=== PATIENT | male | born 1955 | race Caucasian/White ===

== ENCOUNTER 2018-01-05 09:26 | Emergency (ER) | payer MEDICAID ==
[~2018-01-05] VITALS: Ht 170.2 cm; Wt 75.0 kg
[2018-01-05 09:39] VITALS: Ht 170.2 cm; Wt 75.0 kg
[2018-01-05] MEDS ORDERED: ZOCOR40 MG PO ×2 (10:05→13:18)
[2018-01-05] MEDS ORDERED: ISOSORBIDE MONO30 M1 PO ×2 (10:05→13:18)
[2018-01-05] MEDS ORDERED: HYDROCHLOROTHIA25 MG PO ×2 (10:05→13:18)
[2018-01-05] MEDS ORDERED: VITAMIN E1000 UNI1 PO (10:06)
[2018-01-05] MEDS ORDERED: ASPIRIN325 MG PO ×2 (10:06→13:18)
[2018-01-05] MEDS ORDERED: HYTRIN5 MG PO ×2 (10:06→13:18)
[2018-01-05] MEDS ORDERED: VITAMIN B-121000 MCG PO (10:06)
[2018-01-05] MEDS ORDERED: CENTRUM COMPLE1 EACH PO (10:07)
[2018-01-05 10:51] LABS: APPEARANCE CLEAR (CLEAR); BILIRUBIN NEGATIVE (NEGATIVE); COLOR DK YELLOW (YELLOW); GLUCOSE NEGATIVE (NEGATIVE); KETONE NEGATIVE (NEGATIVE); NITRITE NEGATIVE (NEGATIVE); PROTEIN NEGATIVE (NEGATIVE); SPECIFIC GRAVITY 1.015 (1.005-1.020); UROBILINOGEN NORMAL (NORMAL)
[2018-01-05] MEDS ORDERED: CYCLOBENZAPRINE10 MG PO (12:04)
[2018-01-05] MEDS ORDERED: IBUPROFEN800 MG PO (12:04)
[2018-01-05] MEDS ORDERED: ACETAMINOPHEN500 M1 PO (12:04)
[2018-01-05 13:00] VITALS: BP 120/71
[2018-02-18 02:16] VITALS: Ht 170.2 cm; Wt 75.0 kg
== END 2018-01-05 13:00 | disposition home or self-care (01) ==
LOC: D.ER 09:26
PROVIDERS: Family Medicine
DX: M54.42 Lumbago with sciatica, left side (principal); R20.2 Paresthesia of skin

== ENCOUNTER 2018-02-17 15:52 | Observation (INO) | payer MEDICAID ==
[~2018-02-17] VITALS: Ht 170.2 cm; Wt 75.6 kg
--- NOTE | ~2018-02-17 | DS ---
PATIENT:EFRAIN COVARRUBIAS :55 MEDICAL RECORD: [id number] DISCHARGE SUMMARY ADMISSION DATE: 02/17/18 DISCHARGE DATE: 02/18/18 DISCHARGE DIAGNOSES: 1. Chest pain compatible with angina. 2. Coronary artery disease. 3. Status post coronary bypass graft surgery. HOSPITAL COURSE: This is a gentleman who presents with anginal symptomatology; however, cardiac catheterization reveals wide patency of all his grafts, mild diffuse disease distally, but no need for cardiac intervention. He was discharged home with the addition of Imdur to his medical regimen. He will follow up with [facility] in 1 month. TRANSINT:[id number] Voice Confirmation ID: [id number] DOCUMENT ID: [id number] SHANNAN JAVIER MD at 1325 CC: [id number] DICTATION DATE: 02/18/18 1201 INSIDE CHANNEL ACCOUNT MANAGER: 02/18/18 1708 DIS IN 02/18/18 [place] [id number] [place] [address]
--- NOTE | ~2018-02-17 | HP ---
PATIENT: EFRAIN COVARRUBIAS MEDICAL RECORD: [id number] ACCOUNT: [id number] LOCATION:[address] : 55 ADMISSION DATE: 02/17/18 HISTORY AND PHYSICAL EXAMINATION DIAGNOSES: 1. Angina. 2. Coronary disease. 3. Status post coronary bypass graft surgery, 4 vessels, 13 years ago in [place]. 4. Unsteady gait. 5. Carotid vascular disease. 6. Hyperlipidemia. 7. Hypertension. HISTORY: This is a gentleman with past history of coronary disease, who relocated to [facility] from [place]. He is status post coronary bypass graft surgery in [place] 13 years ago. He began having some chest pain and chest discomfort for the past 2 months. It has progressed. He as well has had near syncope and unsteady gait that has worsened. He has been told in the past that he has carotid vascular disease. REVIEW OF SYSTEMS: The patient reports easy bruising but reports no swollen glands. The patient reports no fever, no night sweats, no significant weight gain, no significant weight loss. No significant exercise tolerance. The patient reports no dry eyes, no irritation, no vision change. Patient reports no difficulty hearing and no ear pain. Patient reports no frequent nose bleeds or nose and sinus problems. Patient reports on arm pain on exertion. No shortness of breath while lying down. No history of heart murmur. Patient reports no cough, no wheezing or coughing up blood. Patient reports no abdominal pain, no vomiting. Normal appetite. No diarrhea and not vomiting blood. No nausea and no constipation. Patient reports no incontinence. No difficulty urinating. No hematuria. No increased frequency. Patient reports no muscle aches. No weakness, no arthralgias, no back pain. No swelling of the extremities. Patient reports no abnormal mole, no jaundice, no rashes. Reports no loss of consciousness. No weakness and no numbness. No seizures, dizziness, or headaches. The patient reports no depression, no sleep disturbance, feeling safe in a relationship and no alcohol abuse. Patient reports on fatigue. Reports no runny nose or sinus pressure. No itching, no hives, and no frequent sneezing. PHYSICAL EXAMINATION: GENERAL APPEARANCE: Well-nourished, well-developed, appears stated age. Level of distress, comfortable. PSYCHIATRIC: Mental status, alert, normal affect. Orientation, oriented to time, place and person. EYES: Lids and conjunctiva, noninjected. No discharge, no pallor. ENT: Lips, teeth, gums, normal dentition. Oropharynx, no cyanosis, no pallor. NECK: Carotid arteries, bilateral normal upstroke, no bruits, no thrills. JUGULAR VEINS: No jugular venous pressure or distention. CERVICAL LYMPH NODES: Nontender, nonenlarged. THYROID: Not enlarged. Nontender. No nodules. LUNGS: Respiratory effort, unlabored. CHEST: Normal curvature. No thoracic deformity. No chest wall tenderness. Percussion, resonant. Auscultation, clear. No wheezes, no rales, no rhonchi. HISTORY AND PHYSICAL [id number] EFRAIN COVARRUBIAS CARDIOVASCULAR: Precordial exam, nondisplaced. No heaves or pericardial thrills. Rate and rhythm, regular. Heart sounds, normal S1, normal S2. No S3, no gallop, no rub. Systolic murmur, not heard. Diastolic murmur, not heard. EXTREMITIES: No cyanosis, no edema. Peripheral pulses, full and equal in all extremities, except as noted. No bruits appreciated. ABDOMEN: Soft, nondistended. Normal aorta. No bruit. Nontender. No masses. Liver, nontender, no hepatomegaly. Spleen, nontender, no splenomegaly. MUSCULOSKELETAL: No joint tenderness. No joint swelling. No erythema. NEUROLOGICAL: Normal gait, normal strength, normal tone. SKIN: Warm and dry. OVERALL IMPRESSION: Unstable anginal symptomatology with 13-year-old bypass grafts as well as neurologic symptoms with carotid vascular disease. We will proceed with coronary angiography and 4 vessel carotid vertebral angiography. Further care depends upon the findings of the angiography. TRANSINT:[id number] Voice Confirmation ID: [id number] DOCUMENT ID: [id number] SHANNAN JAVIER MD at 1325 CC: [id number] DICTATION DATE: 02/18/18 1118 SANDBLASTER SUPERVISOR: 02/18/18 1239 DIS IN 02/18/18 [facility] [address] [place] [address]
--- NOTE | ~2018-02-17 | OP ---
PATIENT NAME: EFRAIN COVARRUBIAS MEDICAL RECORD: [id number] :55 LOCATION:D.M2 [address].2118 ADMISSION DATE:02/17/18 SURGEON: SHANNAN JAVIER MD DATE OF OPERATION: 02/18/2018 PROCEDURES: 1. Left heart catheterization. 2. Selective coronary angiography. 3. Vein graft angiography. 4. CIFUENTES angiography. 5. Left ventriculogram. 6. Four-vessel carotid and vertebral angiography. INDICATION: Angina, coronary artery disease, unsteady gait, carotid vascular disease. DESCRIPTION OF PROCEDURE: After informed consent was obtained and after detailed explanation of risks, benefits as well as alternative therapies, the patient elected to proceed with angiogram and heart catheterization. The right femoral area was prepped and draped in normal sterile fashion. Right femoral artery was cannulated via modified Seldinger technique with placement of 5-Kyrgyz sheath. All catheters exchanged through this sheath. FINDINGS: There was subselection of each subclavian as well as the left carotid. Right Side: The common internal and external carotids have mild plaquing, none greater than 20%, no flow-limiting stenosis. Vertebral artery is with no significant disease. Left System: The common internal and external carotids have mild plaquing, no greater than 20%, no flow-limiting stenosis. Vertebral artery has no significant disease. Left ventriculogram was performed in standard 30-degree GRANADO view, reveals good cardiac wall motion throughout all segments. Overall ejection fraction estimated 60%. SELECTIVE CORONARY ANGIOGRAPHY: 1. Left main has 90% stenosis. 2. The left anterior descending is totally occluded. 3. Left circumflex is totally occluded. 4. Right coronary is totally occluded. 5. CIFUENTES to the LAD is widely patent. Distal LAD is mildly diffusely diseased, but patent. 6. Vein graft to the circumflex in a skipped fashion to OM1 and OM2 is patent. The distal circumflex has no significant disease. 7. Right coronary vein graft is patent. Distal right coronary is mildly diffusely diseased. OVERALL IMPRESSION: Wide patency of all his grafts with no significant disease elsewise. mild diffuse disease distally. Continue medical management of the coronary artery disease and cardiac risk factors. TRANSINT:[id number] Voice Confirmation ID: [id number] DOCUMENT ID: [id number] OPERATIVE REPORT [id number] SATISHEFRAIN JEFFREY MD at 1325 CC: [id number] DICTATION DATE: 02/18/18 1203 FIBER DRIER OPERATOR: 02/18/18 1328 DIS IN 02/18/18 [place] [id number] [place] [id number]
--- NOTE | ~2018-02-17 | HEMODYNAMI ---
PATIENT:EFRAIN COVARRUBIAS MEDICAL RECORD: [id number] : 55 [facility] [address] [id number] ADMISSION DATE: 02/17/18 Generatedon:02/18/201812:03 Patient name: EFRAIN COVARRUBIAS Patient #: [id number] SS N: : 1955 Date of study: 02/18/2018 Page: Of Hemodynamic Procedure Report Patient Data Patient Demographics Procedure consent was obtained First Name: EFRAIN Gender: Male Last Name: SATISH : 1955 Patient #: [id number] Age: 63 year(s) Race: Unknown Additional ID: [id number] Contact details [address]: [address] [place] [address] State: [place] City: [place] Zip code: [address] Past Medical History Allergies Allergen Reaction Date Comments Reported Other allergy 02/18/2018 [facility] Admission Admission Data Admission Date: 02/17/2018 Admission Time: 19:37 Admit Source: Other Room #: D.2118 Height (in.): 66.93 BSA: 1.86 (m2) Height (cm.): 170 BMI: 25.95 (kg/m2) Weight (lbs.): 165.35 Weight (kg.): 75 Lab Results Lab Result Date: 02/18/2018 Lab Result Time: 0:00 Biochemistry Name Units Result Min Max BUN mg/dl 9 --(*---)-- 7 18 Creatinine mg/dl 1 --(--*-)-- 0.6 1.3 CBC Name Units Result Min Max Hemoglobin g/dl 14.8 --(-*--)-- 13.5 17.5 Procedure Procedure Types Cath Procedure Diagnostic Procedure LHC LHC w/Coronaries w/Grafts Sedation Charges Procedure Description Procedure Date Procedure Date: 02/18/2018 Procedure Start Time: 11:49 Procedure End Time: 12:01 Procedure Staff Name Function Zenon Garces MD Performing Physician Katie Godinez RT Monitor Marvin Servin RT Scrub Edinson Lorigan RN Nurse Procedure Data Cath Procedure Fluoroscopy Diagnostic fluoroscopy Total fluoroscopy Time: 2.4 time: 2.4 min min Diagnostic fluoroscopy Total fluoroscopy dose: 454 dose: 454 mGy mGy Contrast Material Contrast Material Type Amount (ml) Isovue 300 85 Entry Location Entry Primary Successful Side Size Upsize Upsize Entry Closure Succes sful Closure Location (Fr) 1 (Fr) 2 (Fr) Remarks Device Remarks Femoral Right 5 Fr Exoseal artery Estimated blood loss: 10 ml Diagnostic catheters Device Type Used For End Catheter Placement MULTIPACK Pigtail 5 Fr Procedure catheter MULTIPACK JL 4.0 5Fr Procedure catheter MULTIPACK 3DRC 5Fr Procedure catheter DIAGNOSTIC AR MOD 5Fr Procedure Catheter ([id number]) Procedure Complications No complications Procedure Medications Medication Administration Route Dosage 0.9% NaCl I.V. 100 ml/hr Oxygen etCO2 Nasal cannula 2 l/min Heparin Flush Bag added to field 2 bags (1000units/500ml NS) Lidocaine 2% added to field 20 Versed I.V. 2 mg Fentanyl I.V. 100 mcg Hemodynamics Rest BSA: 1.86 (m2) HGB: 14.8 (g/dl) O2 Consumption: Estimated: 219.53 (ml/min) O2 Co nsumption indexed: Estimated:118.03 (ml/min/m) Heart Rate: 73 (bpm) Snapshots Pre Cath Intra NCS Post Cath Vital Signs Time Heart Resp SPO2 etCO2 NIBP (mmHg) Rhythm Pain Sedation Rate (ipm) (%) (mmHg) Status Level (bpm) 11:36:36 72 17 99 0 146/78(126) NSR 0 (11) 10(A) , No pain 11:41:18 68 18 96 0 138/81(115) NSR 0 (11) 10(A) , No pain 11:45:59 66 15 96 29.9 129/81(100) NSR 0 (11) 10(A) , No pain 11:50:42 64 14 98 11.9 127/75(99) NSR 0 (11) 10(A) , No pain 11:55:22 67 13 98 41.1 126/74(111) NSR 0 (11) 10(A) , No pain 12:00:01 61 15 100 36.7 130/73(102) NSR 0 (11) 10(A) , No pain Medications Time Medication Route Dose Verified Delivered Reason Notes Eff ectiveness by by 11:43:30 0.9% NaCl I.V. 100 Edinson Edinson Per ml/hr Spencer Palmer physician RN RN 11:43:40 Oxygen etCO2 2 Edinson Edinson Per Nasal l/min Spencer Palmer physician cannula RN RN 11:43:54 Heparin Flush added 2 Edinson Edinson used for Bag to bags Spencre Palmer procedure (1000units/500ml field RN RN NS) 11:44:04 Lidocaine 2% added 20ml Edinson Edinson for local to vial Lorigan Giaigan anesthetic field RN RN 11:50:50 Versed I.V. 2 mg Edinson Edinson for Lorigan Lorigan sedation RN RN 11:50:57 Fentanyl I.V. 100 Edinson Edinson for mcg Lorigan Lorigan sedation RN traffic investigator Log Time Note 11:10:18 Informed consent obtained and on chart 11:10:21 Admit Source: Other 11:10:34 Diagnostic Cath status Elective 11:10:36 Marvin Servin RT(R) sent for patient. Start room use. 11:10:36 Time tracking: Call back (After hours or weekends) 11:10:40 Plan of Care:Hemodynamics will remain stable., Cardiac rhythm will remain stable., Comfort level will be maintained., Respiratory function will remain adequate., Patient/ family verbilizes understanding of procedure., Procedure tolerated without complication., Recovers from procedure without complications.. 11:22:57 Patient Height : 66.93 inches 11:23:02 Patient Weight : 165.35 lbs 11:23:50 Lab Result : Hemoglobin 14.8 g/dl 11:23:50 Lab Result : Creatinine 1 mg/dl 11:23:50 Lab Result : BUN 9 mg/dl 11:31:43 Patient received from Med II to CCL 1 Alert and oriented. Tansferred to table in Supine position. 11:31:44 Warm blankets applied, and janny hugger turned on for patient comfort. 11:31:45 Correct patient and procedure confirmed by team. 11:31:45 ECG and BP/O2 sat monitors applied to patient. 11:35:41 Baseline sample Acquired. 11:35:41 Vital chart was started 11:41:08 Full Disclosure recording started 11:41:14 H&P Date Dictated: 02/17/2018 Within 30 days and on chart.. 11:41:16 Pre-procedure instructions explained to patient. 11:41:44 Family unavailable. 11:41:46 Patient NPO since Midnight. 11:42:18 Patient allergic to Other allergyPCN 11:42:27 Is patient on blood thinner?Yes 11:42:30 ACC The patient was administered the following blood thiners within the last 24 hours: ACCPlavix 11:42:33 Patient diabetic? No. 11:42:37 Snore? Yes 11:42:39 Sleep apnea? No 11:42:51 Dentures? Yes IN Tight 11:42:55 Patient pain scale 0/10 ?. 11:43:07 IV patent on arrival in left forearm with 0.9% NaCl at [facility]. 11:43:12 Lab results completed and on chart. 11:43:16 Right groin area was prepped with chlora-prep and draped in sterile fashion 11:43:18 Alarms reviewed by R. N. 11:43:18 Sharps counted by scrub and verified by R.N. 11:43:20 Physician paged 11:43:30 0.9% NaCl 100 ml/hr I.V. was administered by Edinson Palmer RN; Per physician; 11:43:40 Oxygen 2 l/min etCO2 Nasal cannula was administered by Edinson Palmer RN; Per physician; 11:43:54 Heparin Flush Bag (1000units/500ml NS) 2 bags added to field was administered by Edinson Palmer RN; used for procedure; 11:44:04 Lidocaine 2% 20ml vial added to field was administered by Edinson Palmer RN; for local anesthetic; 11:48:48 Physician arrived 11:48:48 --------ALL STOP TIME OUT------ 11:48:49 Final Timeout: patient, procedure, and site verified with staff and physician. All members of the team are in agreement. 11:48:51 Right groin site verified by team. 11:48:56 Physical assessment completed. ASA score P 2 - A patient with mild systemic disease as per Zenon Garces MD. 11:49:00 Sedation plan: IV Moderate Sedation Medication:Versed, Fentanyl 11:49:06 Procedure started. 11:49:10 Use device set Femoral Dx 11:49:15 Local anesthetic to right femoral artery with Lidocaine 2% by Zenon Garces MD.INITIAL ACCESS ONLY 11:49:17 ACIST Syringe (49820) opened to sterile field. 11:49:18 Bag Decanter () opened to sterile field. 11:49:18 Medline Cath Pack ([id number]) opened to sterile field. 11:49:19 DIAGNOSTIC WIRE .035 260cm J wire (299182) opened to sterile field. 11:49:22 ACIST Hand Control (93836) opened to sterile field. 11:49:22 ACIST Manifold (96137) opened to sterile field. 11:49:23 DIAGNOSTIC Multipack 5Fr catheter set (FY5971) opened to sterile field. 11:49:23 Tegaderm 4 x 4 (1626W) opened to sterile field. 11:49:23 PERCUTANEOUS ENTRY 19GA needle opened to sterile field. 11:49:30 SHEATH Prelude 5Fr 0.035 (GNB-1L-28-035) opened to sterile field. 11:49:57 A 5 Fr sheath was inserted into the Right Femoral artery 11:50:07 A MULTIPACK Pigtail 5 Fr catheter was advanced over the wire and used for Procedure. 11:50:11 Catheter removed. 11:50:33 A MULTIPACK JL 4.0 5Fr catheter was advanced over the wire and used for Procedure. 11:50:40 LCA angiography performed. 11:50:50 Versed 2 mg I.V. was administered by Edinson Palmer RN; for sedation; 11:50:57 Fentanyl 100 mcg I.V. was administered by Edinson Palmer RN; for sedation; 11:51:12 Catheter removed. 11:51:19 A MULTIPACK 3DRC 5Fr catheter was advanced over the wire and used for Procedure. 11:51:51 Right carotid angiography performed. 11:51:53 Left carotid angiography performed. 11:52:59 RCA angiography performed. 11:53:03 CIFUENTES to LAD angiography performed. 11:53:51 Catheter removed. 11:54:02 A DIAGNOSTIC AR MOD 5Fr Catheter (147506N) was advanced over the wire and used for Procedure. 11:55:05 SVG to Circ angiography performed. 11:55:33 SVG to RCA angiography performed. 11:56:05 EXOSEAL 5Fr (EX500) opened to sterile field. 11:56:19 Catheter removed. 11:56:34 Sheath removed intact; hemostasis achieved with Exoseal to the Right Femoral artery. 11:56:36 Procedure ended.(Physican Out) 11:56:59 Fluoroscopy time 02.40 minutes. 11:57:04 Fluoroscopy dose: 454 mGy 11:57:04 Flurop Dose total: 454 11:57:18 Contrast amount:Isovue 300 85ml. 11:57:28 Insertion/operative site no bleeding no hematoma. 11:57:33 Post-op/insertion site Right Femoral artery dressed using a 4 x 4 and Tegaderm. 11:57:40 Post right femoral artery:stable 11:57:46 Post Procedure Pulses reassessed and unchanged 11:58:34 Post-procedure physical assessment completed. ASA score P 2 - A patient with mild systemic disease as per Zenon Garces MD. 11:58:37 Post procedure rhythm: unchanged. 11:58:41 Estimated blood loss: 10 ml 11:58:43 Post procedure instruction explained to patient.Patient verbalizes understanding. 11:59:18 Procedure type changed to Cath procedure, Diagnostic procedure, LHC, LHC w/Coronaries w/Grafts, Sedation Charges 11:59:19 Procedure and supply charges have been captured, reviewed, submitted and are correct. 12:00:29 Procedure Complication : No complications 12:00:32 Vital chart was stopped 12:00:47 See physician's report for complete and final results. 12:00:49 Report given to Pre/Post Procedure Room. 12:01:10 Patient transfered to [facility] with Stretcher. 12:01:13 Procedure ended. 12:01:13 Full Disclosure recording stopped 12:01:34 End room use (Document Last) Device Usage Item Name Manufacture Quantity Catalog Number Hospital Part Current M inimal Lot# / Charge Number Stock Stock Serial# Code ACIST Syringe Acist 1 18989 988250 518745 258795 2 0 (84830) [employer] Bag Decanter Microtek 1 074261 32937 359869 5 () Medical Inc. Medline Cath Cardinal 1 [id number] 142321 93303 399957 5 Active[employer] Health ([id number]) DIAGNOSTIC WIRE [address] [place] 1 912995 887179 538269 931922 3 0 .035 260cm J wire (666711) ACIST Hand Acist 1 35138 596585 379741 663571 5 Control (11187) [employer] ACIST Manifold Acist 1 92512 354029 629300 940656 5 (65024) [employer] DIAGNOSTIC Cardinal 1 NV1166 038215 75677 161504 3 0 Multipack 5Fr Health catheter set (SI3798) Tegaderm 4 x 4 3M 1 1626W 631540 857926 675490 5 (1626W) PERCUTANEOUS Cook Medical 1 [id number] 672027 030774 5 ENTRY 19GA needle SHEATH Prelude Merit 1 ING-7I-05-035 115029 435456 703593 5 5Fr 0.035 Medical ([id number]-8F-10-035) MULTIPACK Cardinal 1 895285 5 Pigtail 5 Fr Health catheter MULTIPACK JL Cardinal 1 174065 5 4.0 5Fr Health catheter MULTIPACK 3DRC Cardinal 1 [id number] 5 5Fr catheter Health DIAGNOSTIC AR Cardinal 1 [id number] 271562 685740 645183 1 5 MOD 5Fr Health Catheter (274477L) EXOSEAL 5Fr Cardinal 1 EX500 731209 938049 844632 1 0 (EX500) Health Signature Audit [place] Stage Time Signature Unsigned Intra-Procedure 02/18/2018 Marvin Servin 12:03:33 PM RT(R) Signatures Monitor : Katie Godinez Signature : RT Date : Time : [facility] [address] [place] [address]
[~2018-02-17 15:52] MED LIST: ACETAMINOPHEN500 M1 PO; ASPIRIN325 MG PO; CENTRUM COMPLE1 EACH PO; CYCLOBENZAPRINE10 MG PO; HYDROCHLOROTHIA25 MG PO; HYTRIN5 MG PO; IBUPROFEN800 MG PO; ISOSORBIDE MONO30 M1 PO; VITAMIN B-121000 MCG PO; VITAMIN E1000 UNI1 PO; ZOCOR40 MG PO
[2018-02-17 16:29] LABS: BASOPHILS 0.3 % (0-2); EOSINOPHILS 1.3 % (0-7); HEMATOCRIT 40.5 % (42.0-54.0); HEMOGLOBIN 14.8 g/dL (13.5-17.5); IMMATURE GRANULOCYTES 0.3 % (0-5); LYMPHOCYTES 43.5 % (15-50); MCH 32.6 pg (26.0-34.0); MCHC 36.5 g/dL (31.0-37.0); MCV 89.2 fL (80.0-100.0); MEAN PLATELET VOLUME 9.5 fL (7.4-10.4); MONOCYTES 7.4 % (2-11); NEUTROPHILS 47.2 % (40-80); PLATELET COUNT 185 10x3/uL (130-400); RBC 4.54 10x6/uL (4.20-6.10); RDW 12.4 % (11.5-14.5)
[2018-02-17 17:08] LABS: ALBUMIN 3.6 g/dL (3.4-5.0); ALKALINE PHOSPHATASE 51 U/L (46-116); ALT (SGPT) 52 U/L (10-68); BILIRUBIN - TOTAL 0.48 mg/dL (0.2-1.3); CALC OSMOLALITY 279 mosm/kg (275-300); CALCIUM 8.5 mg/dL (8.5-10.1); CHLORIDE - SERUM 102 mmol/L (98-107); GLUCOSE 97 mg/dL (74-106); POTASSIUM - SERUM 3.1 mmol/L (3.5-5.1); PROTEIN - SERUM 6.8 g/dL (6.4-8.2); SODIUM 141 mmol/L (136-145); UREA NITROGEN 9 mg/dL (7-18); eGFR NON AFRICAN AMERICAN 80 mL/min (90-120)
[2018-02-17 17:15] VITALS: BP 119/74
[2018-02-17 17:22] LABS: CKMB 0.7 U/L (0.0-3.6); CREATINE KINASE 115 UL (21-232)
[2018-02-17 17:23] LABS: TROPONIN-I < 0.017 ng/mL (0.000-0.060)
[2018-02-17 21:26] VITALS: BP 159/88
[2018-02-17 22:46] LABS: CKMB 0.9 U/L (0.0-3.6); CREATINE KINASE 107 UL (21-232)
[2018-02-17 22:47] LABS: TROPONIN-I < 0.017 ng/mL (0.000-0.060)
[2018-02-18 00:45] VITALS: BP 128/71
[2018-02-18 02:16] VITALS: BP 159/88; Ht 170.2 cm; Wt 75.6 kg
[2018-02-18 02:52] LABS: CKMB 0.9 U/L (0.0-3.6); CREATINE KINASE 102 UL (21-232)
[2018-02-18 02:55] LABS: TROPONIN-I < 0.017 ng/mL (0.000-0.060)
[2018-02-18 06:29] VITALS: BP 109/70
[2018-02-18 08:19] LABS: CKMB 0.5 U/L (0.0-3.6); CREATINE KINASE 98 UL (21-232)
[2018-02-18 08:24] LABS: TROPONIN-I < 0.017 ng/mL (0.000-0.060)
[2018-02-18 08:57] VITALS: BP 133/77
[2018-02-18 10:26] LABS: CALC OSMOLALITY 280 mosm/kg (275-300); CALCIUM 8.4 mg/dL (8.5-10.1); CARBON DIOXIDE 30.4 mmol/L (21.0-32.0); CHLORIDE - SERUM 103 mmol/L (98-107); GLUCOSE 108 mg/dL (74-106); SODIUM 141 mmol/L (136-145); UREA NITROGEN 9 mg/dL (7-18); eGFR NON AFRICAN AMERICAN 80 mL/min (90-120)
[2018-02-18 10:30] LABS: POTASSIUM - SERUM 3.9 mmol/L (3.5-5.1)
[2018-02-18 10:38] LABS: BASOPHILS 0.7 % (0-2); EOSINOPHILS 1.3 % (0-7); HEMATOCRIT 43.2 % (42.0-54.0); HEMOGLOBIN 15.7 g/dL (13.5-17.5); IMMATURE GRANULOCYTES 0.2 % (0-5); LYMPHOCYTES 36.6 % (15-50); MCHC 36.3 g/dL (31.0-37.0); MCV 90.8 fL (80.0-100.0); MEAN PLATELET VOLUME 9.3 fL (7.4-10.4); MONOCYTES 6.5 % (2-11); NEUTROPHILS 54.7 % (40-80); PLATELET COUNT 172 10x3/uL (130-400); RBC 4.76 10x6/uL (4.20-6.10); RDW 12.3 % (11.5-14.5); WBC 4.6 10x3/uL (4.8-10.8)
== END 2018-02-18 18:55 | disposition home or self-care (01) ==
LOC: D.ER 15:52 → D.M2 19:37 → OBSVTIME 19:37 → D.M2 02-18 18:55
PROVIDERS: Family Medicine; Internal Medicine Interventional Cardiology
DX: I25.119 Atherosclerotic heart disease of native coronary artery with unspecified angina pectoris (principal); Z95.1 Presence of aortocoronary bypass graft; R26.81 Unsteadiness on feet; I10 Essential (primary) hypertension; E78.5 Hyperlipidemia, unspecified